=== PATIENT | male | born 1995 | race Caucasian/White ===

== ENCOUNTER → 2022-04-02 | Outpatient (REF) | payer BC ==
[~2022-04-02] MED LIST: /FEXO60TA; ALBU17IN2; ALLE25CA; EPIPEN; PRED20TA; SING10TA31; astelin
[2022-04-02 09:43] LABS: SEMEN APPEARANCE OPAQUE (OPAQUE)
[2022-04-02 09:44] LABS: SEMEN VISCOSITY LIQUID (LIQUID); SEMEN WBC <=1 M/ml (<=1 M/ml)
== END ==
LOC: M LAB REF 08:46
PROVIDERS: ATTEND Legal Medicine
DX: N46.9 Male infertility, unspecified (principal)